=== PATIENT | male | born 1950 | race Caucasian/White ===

== ENCOUNTER 2018-10-07 15:21 | Outpatient (CLI) | payer MEDICARE, BC ==
--- NOTE | 2018-10-07 17:18 | RAD ---
LUMBAR SPINE THREE VIEWS: HISTORY: Chronic back pain. COMPARISON: None. FINDINGS: In the lateral neutral position, there is 8 mm of anterolisthesis of L4 upon L5, upon flexion there i s 11 mm of anterolisthesis, and upon extension there is 7 mm of anterolisthesis. There is vacuum disk phenomenon at L5-S1 and L2-L3. Lumbar spine vertebral body height is maintained . No fractures. IMPRESSION: Grade 1 anterolisthesis of L4 upon L5 with slight increase upon flexion. POS: [facility]
--- NOTE | 2018-10-07 17:39 | MRI ---
MRI LUMBAR SPINE: 10/07/2018 HISTORY: Chronic back pain. Foot numbness. COMPARISON: 02/14/2013 TECHNIQUE: Multiplanar, multisequence MR imaging of the lumbar spine is obtained without contrast. FINDINGS: Mild degenerative edematous endplate changes are seen laterally, on the left, at the lumbosacral junc tion. On the basis of five lumbar type vertebral bodies, the conus medullaris terminates at the T12 level. Anterolisthesis of L4 on L5, measuring approximately 4-5 mm, is noted, slightly worsened when compare d to the prior examination. T12-L1: Mild bilateral facet hypertrophy. Small left paracentral disk protrusion with no significan t central canal or neural foraminal stenosis. L1-L2: Mild bilateral facet hypertrophy. No significant central canal or neural foraminal stenosis. L2-L3: Disk space narrowing, disk desiccation, degenerative endplate change, and disk bulge present, similar when compared to the prior exam. Small bilateral foraminal disk protrusions are noted, righ t greater than left, slightly progressed since the prior examination. There is no significant centra l canal or neural foraminal stenosis noted. L3-L4: There is disk desiccation, disk space narrowing, and minimal disk bulge, worsened since the p rior exam. There is significant bilateral facet hypertrophy and hypertrophy of the ligamentum flavum , worsened as well. Mild new central canal stenosis. Mild bilateral neural foraminal stenosis, new as well. L4-L5: Disk space narrowing, disk desiccation, and disk bulge present with moderate/severe central c anal stenosis, stable. Severe bilateral facet hypertrophy noted with severe bilateral neural foramin al stenosis, worsened bilaterally when compared to the prior examination. L5-S1: Disk space narrowing, disk desiccation, disk bulge, and vacuum disk formation noted, with mil d new central canal stenosis. Bilateral facet hypertrophy noted with moderate bilateral neural tasneem inal stenosis, left greater than right, worsened since the prior exam. There is new clumping of the nerve roots of the cauda equina, at the L5-S1 level. Imaged retroperitoneal structures appear grossly unremarkable. IMPRESSION: Multilevel significant degenerative change within the lumbar spine, worsened since the 2013 examinati on. There is also new clumping of the nerve roots of the cauda equina, at the L5 level, suggesting i nterval development of arachnoiditis. Recommend further assessment via contrast enhanced MRI. CODE T POS: [facility]
== END 2018-10-07 15:22 | disposition home or self-care (01) ==
LOC: SCSMRI 15:21
PROVIDERS: ATTEND Anesthesiology Pain Medicine
DX: M43.17 Spondylolisthesis, lumbosacral region (principal); M47.816 Spondylosis without myelopathy or radiculopathy, lumbar region; M43.16 Spondylolisthesis, lumbar region
CPT/HCPCS: 72100; 72148

== ENCOUNTER 2019-05-06 06:01 | Day surgery (SDC) | payer MEDICARE, BC ==
[2019-05-05 09:50] VITALS: BMI 27.3
[2019-05-06] MEDS ORDERED: ceFAZolin Sodium (SDC) 2 GM/100 ML BAG ONE (06:20)
[2019-05-06] MEDS ORDERED: Sodium Chloride 0.9% 10 ML ONE (06:25)
[2019-05-06] MEDS ORDERED: Thrombin 5000 UNITS/5 ML VIAL ONE (06:55)
[2019-05-06 07:05] LABS: #Eosinphils 0.1 thou/uL (0.0-0.7); #Lymphocytes 1.1 thou/uL (1.20-3.40); #Monocytes 0.5 thou/uL (0.11-0.59); %Basophils 0.8 % (0.0-1.0); %Eosinophils 2.3 % (0.0-10.0); %Monocytes 10.7 % (0.0-10.0); %Neutrophils 62.2 % (42.0-75.0); Mean Corpuscular HGB CONC 34.5 g/dL (32.0-36.0); Mean Corpuscular Hemoglobin 32.7 pg (27.0-31.0); Mean Corpuscular Volume 94.6 fL (78.0-98.0); Mean Platelet Volume 10.1 fL (7.4-10.4); Platelet Count 138 thou/uL (130-400); White Blood Cell (WBC) Count 4.8 thou/uL (4.8-10.8)
[2019-05-06 07:09] LABS: PTT 29.1 SEC (22.9-36.1); Prothrombin Time 13.4 SEC (12.0-14.7)
[2019-05-06] MEDS ORDERED: Fentanyl 100 MCG/2 ML VIAL ONE ×4 (07:19→11:48)
[2019-05-06 07:21] LABS: Anion Gap 14 mmol/L (10-20); BUN (Urea Nitrogen) 10 mg/dL (8.4-25.7); Calc. Creatinine Clearance 98 mL/min (70-130); Calcium 9.2 mg/dL (7.8-10.44); Carbon Dioxide 23 mmol/L (23-31); Chloride 107 mmol/L (98-107); Estimated GFR-MDRD 88; Glucose 94 mg/dL (80-115); Sodium 140 mmol/L (136-145)
[2019-05-06] MEDS ORDERED: Albumin 5% 500 ML ONE (09:16)
[2019-05-06] MEDS ORDERED: Promethazine HCl 25 MG/ML VIAL SLOW IVP PRN (10:41)
[2019-05-06] MEDS ORDERED: HYDROmorphone 2 MG/ML VIAL SLOW IVP PRN (10:41)
[2019-05-06] MEDS ORDERED: Promethazine HCl 25 MG/ML VIAL IM PRN (10:41)
[2019-05-06] MEDS ORDERED: Ondansetron HCl/PF 4 MG/2 ML Vial IVP PRN (10:41)
[2019-05-06] MEDS ORDERED: Morphine Sulfate 2 MG/ML SYRINGE SLOW IVP PRN (10:41)
[2019-05-06] MEDS ORDERED: PACU-Morphine 4MG/ML VIAL SLOW IVP PRN (10:41)
[2019-05-06] MEDS ORDERED: Mag-Al 1200 mg/1200 mg/30 ML UDCUP PO PRN (10:58)
[2019-05-06] MEDS ORDERED: Milk Of Magnesia 30 ML UDCUP PO PRN (10:58)
[2019-05-06] MEDS ORDERED: Bisacodyl 10 MG SUPP PR PRN (10:58)
[2019-05-06] MEDS ORDERED: Ondansetron PF 4 MG/2 ML Vial IVP PRN (10:58)
[2019-05-06] MEDS ORDERED: Fleet Enema 133 ML BOT PR PRN (10:58)
[2019-05-06] MEDS ORDERED: Acetaminophen 325 MG TAB PO PRN (10:58)
[2019-05-06] MEDS ORDERED: Acetaminophen/Codeine 30-300mg Tablet PO PRN (10:58)
--- NOTE | 2019-05-06 11:12 | OP ---
DATE OF PROCEDURE: 05/06/2019 LOCATION: OR 11. WOUND CLASSIFICATION: Type 1 wound. GUMMING MACHINE OPERATOR: Brad Galeana PA-C PREPROCEDURE DIAGNOSIS: Multilevel lumbar stenosis. POSTPROCEDURE DIAGNOSIS: Multilevel lumbar stenosis. PROCEDURE PERFORMED: L3-L4, L4-L5, L5-S1 laminectomies, partial facetectomies and foraminotomies, L3 to S1. DESCRIPTION OF PROCEDURE: After informed consent was obtained from the patient, the patient was brought to the OR. Proper patient, pause, and identification were carried out. He was placed under excellent general endotracheal anesthesia and positioned prone on the OR table. All appropriate points were padded. We identified the L3, L4, L5, and S1 dorsal spines and lamina. A linear richard was made over this region. This area was sterilely cleansed, prepared and draped. Proper patient, pause, and identification were carried out. We then localized and then performed L3, L4, L5, and S1 dorsal spines laminectomies and we had sterilely cleansed, prepared and draped the wound as well. Copious irrigation occurred throughout as did maximizing hemostasis. The wound was then closed in anatomic layers following sprinkling of vancomycin powder. The patient was then emerged from anesthesia. Job ID: [id number]
[2019-05-06] MEDS ORDERED: HYDROmorphone 2 MG/ML VIAL ONE (11:59)
[2019-05-06] MEDS: Sodium Chloride 0.9% 1,000 ML IV SCH (13:49)
[2019-05-06] MEDS: HYDROcodone/Acetaminophen 7.5/325 mg Tablet PO PRN ×2 (13:57→20:23)
[2019-05-06] MEDS: tiZANidine HCl 4 MG TAB PO PRN ×2 (15:09→22:34)
[2019-05-06] MEDS: CEFAZOLIN 2 GM, Admixture Fee 1 EACH in Sodium Chloride 0.9% 100 ML IVPB SCH ×2 (15:09→22:35)
[2019-05-06] MEDS: traMADol HCl 50 MG TAB PO PRN (18:46)
[2019-05-07] MEDS ORDERED: Cepastat Lozenges 1 LOZ PO PRN (00:32)
[2019-05-07] MEDS ORDERED: diphenhydrAMINE 25 MG CAP PO PRN (00:33)
[2019-05-07] MEDS: traMADol HCl 50 MG TAB PO PRN ×3 (01:56→14:10)
[2019-05-07] MEDS: Sodium Chloride 0.9% 1,000 ML IV SCH ×2 (02:00→10:22)
[2019-05-07] MEDS: HYDROcodone/Acetaminophen 7.5/325 mg Tablet PO PRN ×3 (06:32→14:06)
[2019-05-07] MEDS: tiZANidine HCl 4 MG TAB PO PRN (08:15)
[2019-05-07] MEDS ORDERED: Lisinopril 20 MG TAB PO SCH (09:00)
[2019-05-07] MEDS ORDERED: Pantoprazole 40 MG VIAL IVP SCH (12:03)
[2019-05-07] MEDS ORDERED: Dexamethasone 4 mg/ml Vial SLOW IVP SCH (12:03)
[2019-05-07] MEDS ORDERED: Sodium Chloride 0.9% (PF) 10 ML VIAL FS PRN (12:07)
[2019-05-07 12:19] VITALS: BP 116/76; TEMP 99.2
--- NOTE | 2019-05-08 06:24 | DIS ---
DATE OF ADMISSION: 05/06/2019 DATE OF DISCHARGE: 05/07/2019 This is Brad Galeana PA-C dictating a report for Fam Jimenez MD. DISCHARGE DIAGNOSES: 1. Low back pain with pseudoclaudication. 2. Lumbar spinal stenosis. HOSPITAL COURSE: Mr. Scott was admitted to undergo multilevel lumbar laminectomies with Dr. Jimenez on 05/06/2019. The patient's surgery was without complication and he required 1 overnight stay for adequate pain control postoperatively. The patient's main complaint is sore throat as he has a history of esophageal stricture dilation few months ago. He has had significant phlegm production and sore throat. We have discussed ways to improve this and I have also provided a one time dose of IV steroids. However neurologically the patient is doing very well and he has some incisional back pain, but otherwise states he has no numbness or tingling or heaviness feeling to the legs postoperatively. He has been up walking. At this time, he is safe for discharge again with good strength in the bilateral legs. Outpatient followups were provided to the patient as well as appropriate patient education. The patient and his understood to call the office for questions or concerns prior to his next scheduled followup. Job ID: [id number]
== END 2019-05-07 14:59 | disposition home or self-care (01) ==
LOC: SDC 06:01 → SURG B 10:58 → SDC 05-07 14:59
PROVIDERS: ATTEND Surgery
PROC: 01NB0ZZ Release Lumbar Nerve, Open Approach (ICD-10-PCS; principal; 2019-05-06)
DX: M48.062 Spinal stenosis, lumbar region with neurogenic claudication (principal); R26.89 Other abnormalities of gait and mobility
CPT/HCPCS: 63047; 63048 ×2; 76000; 80048; 85025; 85610; 85730; P9045; 36415; C9113; J0131; J0690; J1100; J1170; J3010; J3370; J3490; Q0163

== ENCOUNTER 2022-10-23 11:00 | Inpatient (IN) | payer MEDICARE, BC ==
[2022-10-23 13:58] LABS: Hemoglobin 14.8 g/dL (13.5-17.5); Mean Corpuscular HGB CONC 34.9 g/dL (32.0-36.0); Mean Corpuscular Hemoglobin 33.4 pg (27.0-33.0); Mean Corpuscular Volume 95.7 fl (81.2-95.1); Platelet Count 213 10x3/uL (150-450); RBC Distribution Width 11.8 % (11.5-14.5); Red Blood Cell (RBC) Count 4.43 10x6/uL (4.32-5.72); White Blood Cell (WBC) Count 6.8 10x3/uL (3.5-10.5)
[2022-10-23 14:12] LABS: Anion Gap 14 mmol/L (10-20); BUN (Urea Nitrogen) 12 mg/dL (8.4-25.7); Calc. Creatinine Clearance 0 mL/min (70-130); Calcium 8.9 mg/dL (7.8-10.44); Carbon Dioxide 23 mmol/L (23-31); Chloride 109 mmol/L (98-107); Estimated GFR 93; Glucose 80 mg/dL (83-110); Sodium 141 mmol/L (136-145)
[2022-10-23 14:15] LABS: Prothrombin Time 10.6 sec (9.5-12.1)
[2022-10-28] MEDS ORDERED: Thrombin 5000 UNITS/5 ML VIAL ONE (06:49)
[2022-10-28] MEDS ORDERED: Bacitracin Zinc Ointment 30 gm TUBE ONE (06:49)
[2022-10-28] MEDS ORDERED: Vancomycin 1 GM VIAL ONE (06:49)
[2022-10-28] MEDS ORDERED: Magnesium 5 GM/10 ML Abboject SYRINGE ONE (07:01)
[2022-10-28] MEDS ORDERED: HYDROmorphone 0.5 MG/0.5 ML SYRINGE ONE ×5 (07:01→16:48)
[2022-10-28] MEDS ORDERED: Dexamethasone 20 MG/5 ML VIAL ONE (07:11)
[2022-10-28] MEDS ORDERED: Rocuronium Bromide 10 MG/ML (10ML VIAL) ONE (07:11)
[2022-10-28] MEDS ORDERED: ePHEDrine 50 MG/ML VIAL ONE (07:11)
[2022-10-28] MEDS ORDERED: PROPOFOL 200 MG/20 ML VIAL ONE (07:11)
[2022-10-28] MEDS ORDERED: PHENYLEPHRINE-NS 100 MCG/ML 10 ML SYRINGE ONE (07:11)
[2022-10-28] MEDS ORDERED: Lidocaine 1% PF 5 ML VIAL ONE (07:11)
[2022-10-28] MEDS ORDERED: Ondansetron PF 4 MG/2 ML Vial ONE (07:11)
[2022-10-28] MEDS ORDERED: Sodium Chloride 0.9% 0 ML ONE (07:16)
[2022-10-28] MEDS ORDERED: CEFAZOLIN 2 GM VIAL ONE (07:16)
[2022-10-28] MEDS ORDERED: Acetaminophen 500 MG TAB ONE (07:16)
[2022-10-28 07:23] LABS: SARS-CoV-2 NAA Rapid Test Not Detected (NotDetected)
[2022-10-28] MEDS ORDERED: diphenhydrAMINE 50 MG/ML VIAL IVP PRN (07:35)
[2022-10-28] MEDS ORDERED: Acetaminophen 325 MG TAB PO PRN (07:35)
[2022-10-28] MEDS ORDERED: Ondansetron PF 4 MG/2 ML Vial IVP PRN ×2 (07:35→10:52)
[2022-10-28] MEDS ORDERED: Ketorolac Tromethamine 30 MG/ML VIAL IVP PRN (07:35)
[2022-10-28] MEDS ORDERED: Rocuronium Bromide 50 MG/5 ML VIAL ONE (10:14)
[2022-10-28] MEDS ORDERED: HYDROmorphone 2 MG/ML VIAL ONE (10:16)
[2022-10-28] MEDS ORDERED: HYDROmorphone 10 mg/100 ml CADD IVPB PRN (10:52)
[2022-10-28] MEDS ORDERED: Zolpidem Tartrate 5 MG TAB PO PRN (10:52)
[2022-10-28] MEDS ORDERED: Naloxone HCl 0.4 mg/ml Vial IV PRN (10:52)
[2022-10-28] MEDS ORDERED: oxyCODONE 5 MG TAB PO PRN (10:59)
[2022-10-28] MEDS ORDERED: Communication Order-Pharmacy FS PRN (11:00)
[2022-10-28] MEDS ORDERED: Promethazine HCl 25 MG/ML VIAL IM PRN (12:30)
[2022-10-28] MEDS ORDERED: HYDROmorphone 2 MG/ML VIAL SLOW IVP PRN (12:30)
[2022-10-28] MEDS ORDERED: Ondansetron HCl/PF 4 MG/2 ML Vial IVP PRN (12:30)
[2022-10-28] MEDS ORDERED: SUGAMMADEX SODIUM 200 MG/2 ML VIAL ONE (13:27)
[2022-10-28] MEDS ORDERED: Diazepam 5 MG TAB PO PRN (13:36)
[2022-10-28] MEDS ORDERED: Chloraseptic Spray 180 ml Bottle PO PRN (13:37)
[2022-10-28] MEDS ORDERED: Cepastat Lozenges 1 LOZ PO PRN (13:37)
[2022-10-28] MEDS ORDERED: hydrALAZINE 20 MG/ML VIAL SLOW IVP PRN (13:38)
[2022-10-28] MEDS ORDERED: Fentanyl 100 MCG/2 ML VIAL ONE (14:25)
[2022-10-28] MEDS: Sodium Chloride 0.9% 1,000 ML IV SCH ×2 (19:17→22:57)
[2022-10-28] MEDS: Ketorolac Tromethamine 30 MG/ML VIAL IVP SCH ×3 (19:17→23:06)
[2022-10-28] MEDS: Acetaminophen 325 MG TAB PO SCH ×3 (19:17→23:07)
[2022-10-28] MEDS: CEFAZOLIN 2 GM in Sodium Chloride 0.9% 100 ML IVPB SCH ×2 (19:24→23:08)
[2022-10-28 20:02] VITALS: BMI 29.2
[2022-10-29] MEDS: Acetaminophen 325 MG TAB PO SCH ×4 (05:27→23:28)
[2022-10-29] MEDS: Ketorolac Tromethamine 30 MG/ML VIAL IVP SCH ×4 (05:28→23:27)
[2022-10-29 07:16] LABS: #Monocytes 1.2 thou/uL (0.11-0.59); #Neutrophils 7.4 thou/uL (1.40-6.50); %Basophils 0.1 % (0.0-1.0); %Eosinophils 0.2 % (0.0-10.0); %Lymphocytes 9.9 % (21.0-51.0); %Monocytes 12.9 % (0.0-10.0); %Neutrophils 76.9 % (42.0-75.0); Hemoglobin 12.7 g/dL (14.0-18.0); Mean Corpuscular Hemoglobin 33.3 pg (27.0-31.0); Mean Platelet Volume 8.8 fL (7.4-10.4); Platelet Count 186 10x3/uL (130-400); RBC Distribution Width 11.5 % (11.5-14.5); Red Blood Cell (RBC) Count 3.81 mill/uL (4.70-6.10); White Blood Cell (WBC) Count 9.6 10x3/uL (4.8-10.8)
[2022-10-29 07:33] LABS: Anion Gap 14 mmol/L (10-20); BUN (Urea Nitrogen) 15 mg/dL (8.4-25.7); Calc. Creatinine Clearance 102 mL/min (70-130); Calcium 8.4 mg/dL (7.8-10.44); Carbon Dioxide 22 mmol/L (23-31); Chloride 107 mmol/L (98-107); Estimated GFR 93; Glucose 90 mg/dL (83-110); Potassium 4.6 mmol/L (3.5-5.1); Sodium 138 mmol/L (136-145)
[2022-10-29] MEDS ORDERED: INTRINSIC FACT PO SCH (09:00)
[2022-10-29] MEDS ORDERED: [UNRECOGNIZED DRUG - OTHER] PO SCH (09:00)
[2022-10-29] MEDS ORDERED: VIT B12 PO SCH (09:00)
[2022-10-29] MEDS: CEFAZOLIN 2 GM in Sodium Chloride 0.9% 100 ML IVPB SCH ×3 (09:05→23:28)
[2022-10-29] MEDS: Loratadine 10 MG TAB PO SCH (09:05)
[2022-10-29] MEDS: Lisinopril 10 MG TAB PO SCH (09:05)
[2022-10-29] MEDS: Sodium Chloride 0.9% 1,000 ML IV SCH ×2 (09:05→23:40)
[2022-10-29] MEDS: HYDROmorphone/PF 10 MG in Sodium Chloride 0.9% 99 ML IVPB PRN (14:02)
[2022-10-29] MEDS: tiZANidine HCl 4 MG TAB PO PRN (19:38)
[2022-10-30] MEDS: Ketorolac Tromethamine 30 MG/ML VIAL IVP SCH (05:33)
[2022-10-30] MEDS: HYDROmorphone/PF 10 MG in Sodium Chloride 0.9% 99 ML IVPB PRN (05:38)
[2022-10-30] MEDS: tiZANidine HCl 4 MG TAB PO PRN (05:45)
[2022-10-30] MEDS: Acetaminophen 325 MG TAB PO SCH ×2 (05:45→12:48)
[2022-10-30 08:50] LABS: Anion Gap 10 mmol/L (10-20); BUN (Urea Nitrogen) 18 mg/dL (8.4-25.7); Calc. Creatinine Clearance 109 mL/min (70-130); Calcium 8.5 mg/dL (7.8-10.44); Carbon Dioxide 24 mmol/L (23-31); Chloride 107 mmol/L (98-107); Estimated GFR 95; Glucose 98 mg/dL (83-110); Potassium 4.4 mmol/L (3.5-5.1); Sodium 137 mmol/L (136-145)
[2022-10-30] MEDS: Loratadine 10 MG TAB PO SCH (09:36)
[2022-10-30] MEDS: CEFAZOLIN 2 GM in Sodium Chloride 0.9% 100 ML IVPB SCH ×2 (09:36→16:04)
[2022-10-30] MEDS: Lisinopril 10 MG TAB PO SCH (09:37)
[2022-10-30] MEDS ORDERED: HYDROcodone/Acetaminophen 10/325 mg Tablet PO PRN (10:07)
[2022-10-30] MEDS ORDERED: HYDROcodone/Acetaminophen 5/325 mg Tablet PO PRN (10:07)
[2022-10-30] MEDS: Sodium Chloride 0.9% 1,000 ML IV SCH (12:51)
[2022-10-30] MEDS ORDERED: Bisacodyl 5 MG TAB PO PRN (15:26)
[2022-10-30] MEDS ORDERED: HYDROcodone/Acetaminophen 7.5/325 mg Tablet PO PRN (15:26)
[2022-10-30] MEDS ORDERED: Polyethylene Glycol 3350 17 GM Packet PO PRN (15:26)
[2022-10-30] MEDS ORDERED: Acetaminophen 325 MG TAB PO PRN (15:27)
[2022-10-30] MEDS ORDERED: Dexamethasone 4 mg/ml Vial SLOW IVP SCH (15:30)
[2022-10-30] MEDS: HYDROcodone/Acetaminophen 10/325 mg Tablet PO PRN ×2 (16:06→21:37)
[2022-10-30] MEDS ORDERED: Ketorolac Tromethamine 30 MG/ML VIAL IVP PRN ×2 (18:00→18:40)
[2022-10-30] MEDS: Diazepam 5 MG TAB PO PRN (18:39)
[2022-10-30] MEDS: Dexamethasone 4 MG TAB PO SCH (21:36)
[2022-10-30] MEDS: Docusate 100 MG CAP PO SCH (21:36)
[2022-10-30] MEDS: Fentanyl 100 MCG/2 ML VIAL SLOW IVP PRN (22:44)
[2022-10-31] MEDS: CEFAZOLIN 2 GM in Sodium Chloride 0.9% 100 ML IVPB SCH ×2 (00:12→08:01)
[2022-10-31] MEDS: HYDROcodone/Acetaminophen 10/325 mg Tablet PO PRN (01:20)
[2022-10-31] MEDS: Dexamethasone 4 MG TAB PO SCH ×4 (01:20→20:20)
[2022-10-31] MEDS: Diazepam 5 MG TAB PO PRN ×3 (01:21→19:02)
[2022-10-31] MEDS: Sodium Chloride 0.9% 1,000 ML IV SCH ×2 (01:23→16:05)
[2022-10-31] MEDS: Fentanyl 100 MCG/2 ML VIAL SLOW IVP PRN ×2 (04:11→08:06)
[2022-10-31] MEDS: Loratadine 10 MG TAB PO SCH (07:59)
[2022-10-31] MEDS: Lisinopril 10 MG TAB PO SCH (08:00)
[2022-10-31] MEDS: Docusate 100 MG CAP PO SCH ×2 (08:00→20:20)
[2022-10-31] MEDS ORDERED: oxyCODONE 5 MG TAB PO PRN (08:12)
[2022-10-31] MEDS: Acetaminophen/Codeine 30-300mg Tablet PO PRN ×2 (11:07→18:04)
[2022-10-31] MEDS: oxyCODONE 5 MG TAB PO PRN ×2 (13:52→20:20)
[2022-10-31 20:37] VITALS: BP 147/77; TEMP 99.7
[2022-11-01] MEDS ORDERED: Dexamethasone 1 MG TAB PO SCH (20:00)
[2022-11-03] MEDS ORDERED: Dexamethasone 1 MG TAB PO SCH (20:00)
[2022-11-05] MEDS ORDERED: Dexamethasone 1 MG TAB PO SCH (20:00)
== END 2022-10-31 23:10 | DRG 454 ==
LOC: SURG A 10-28 06:15 → EDSTATUS 10-28 11:00 → T4-A 10-28 18:38
PROVIDERS: ADMIT Surgery; ATTEND Surgery
PROC: 0RG20A0 Fusion of 2 or more Cervical Vertebral Joints with Interbody Fusion Device, Anterior Approach, Anterior Column, Open Approach (ICD-10-PCS; principal; 2022-10-28)
PROC: 0RG2071 Fusion of 2 or more Cervical Vertebral Joints with Autologous Tissue Substitute, Posterior Approach, Posterior Column, Open Approach (ICD-10-PCS; 2022-10-28)
PROC: 0RB30ZZ Excision of Cervical Vertebral Disc, Open Approach (ICD-10-PCS; 2022-10-28)
DX: M48.02 Spinal stenosis, cervical region (principal); M47.12 Other spondylosis with myelopathy, cervical region; M50.10 Cervical disc disorder with radiculopathy, unspecified cervical region; I10 Essential (primary) hypertension; E78.5 Hyperlipidemia, unspecified; Z20.822 Contact with and (suspected) exposure to COVID-19
CPT/HCPCS: 36415; 80048; 85025; 85027; 85610; 85730; 86850; 86900; 86901; 93970; C1713; C1768; C1776; J1100; J1170; J1885; J2405; J2704; J3010; J3370; J3475; J3490; J7050; J8540; U0002

== ENCOUNTER 2022-10-23 11:07 | Outpatient (CLI) | payer MEDICARE, BC ==
[2022-10-23 13:58] LABS: Hemoglobin 14.8 g/dL (13.5-17.5); Mean Corpuscular HGB CONC 34.9 g/dL (32.0-36.0); Mean Corpuscular Hemoglobin 33.4 pg (27.0-33.0); Mean Corpuscular Volume 95.7 fl (81.2-95.1); Platelet Count 213 10x3/uL (150-450); RBC Distribution Width 11.8 % (11.5-14.5); Red Blood Cell (RBC) Count 4.43 10x6/uL (4.32-5.72); White Blood Cell (WBC) Count 6.8 10x3/uL (3.5-10.5)
[2022-10-23 14:12] LABS: Anion Gap 14 mmol/L (10-20); BUN (Urea Nitrogen) 12 mg/dL (8.4-25.7); Calc. Creatinine Clearance 0 mL/min (70-130); Calcium 8.9 mg/dL (7.8-10.44); Carbon Dioxide 23 mmol/L (23-31); Chloride 109 mmol/L (98-107); Estimated GFR 93; Glucose 80 mg/dL (83-110); Sodium 141 mmol/L (136-145)
[2022-10-23 14:15] LABS: Prothrombin Time 10.6 sec (9.5-12.1)
== END 2022-10-23 11:08 | disposition home or self-care (01) ==
LOC: LABBT 11:07
PROVIDERS: ATTEND Surgery
DX: Z01.818 Encounter for other preprocedural examination (principal); M47.12 Other spondylosis with myelopathy, cervical region; M48.02 Spinal stenosis, cervical region; M50.20 Other cervical disc displacement, unspecified cervical region
CPT/HCPCS: 80048; 85027; 85610; 85730; 86850; 86900; 86901; 93005; 93010

== ENCOUNTER 2022-12-10 12:47 | Outpatient (CLI) | payer MEDICARE, BC | END 2022-12-10 12:48 | disposition home or self-care (01) | LOC: TBSIIMAG 12:47 | PROVIDERS: ATTEND Surgery | DX: M47.22 Other spondylosis with radiculopathy, cervical region (principal); R29.890 Loss of height; Z98.890 Other specified postprocedural states | CPT/HCPCS: 72040 ==